=== PATIENT | male | born 1995 | race Caucasian/White ===

== ENCOUNTER 2016-08-13 11:30 | Emergency (ER) | payer SELFPAY ==
[2016-08-13] MEDS ORDERED: HYDROcodone/Acetaminophen 5/325 mg Tablet ONE (11:48)
--- NOTE | 2016-08-13 12:11 | PICIS ---
[facility] EMERGENCY RECORD TRIAGE (TueAug 13, 2016 11:37 LGIB) TRIAGE NOTES: since this morning. (TueAug 13, 2016 11:37 LGIB) PATIENT: NAME: Kristian Sauceda, AGE: 21, GENDER: male, : Tue1995, TIME OF GREET: TueAug 13, 2016 11:31, PREFERRED LANGUAGE: Mongolian, ETHNICITY: Not or , ECODE BILLING MAP: [facility], SSN: [id number], Zip Code: [address], KG WEIGHT: 81.65, , , PERSON ID: [id number], PAYMENT: [employer] Self Pay, PCP: none. (TueAug 13, 2016 11:37 LGIB) PHONE: . (11:52) COMPLAINT: right ear pain. (TueAug 13, 2016 11:37 LGIB) ADMISSION: URGENCY: 5 Fast Track, ADMISSION SOURCE: Home, TRANSPORT: CAR, BED: TRIAGE. (TueAug 13, 2016 11:37 LGIB) SIRS SCORING: Heart Rate 55-109 (0), Temp range 96.8-101.1 (0), respiratory rate 12-24 (0), Mental Status altered: no (0). (11:54 LGIB) PROVIDERS: TRIAGE NURSE: Kaitlin Montgomery RN. (TueAug 13, 2016 11:37 LGIB) VITAL SIGNS: BP 140/88, Pulse 66, Resp 18, (Non-Labored), Temp 98.1, (Oral), O2 Sat 98, on Room Air, Time 08/13/2016 11:36. (11:36 LGIB) PREVIOUS VISIT ALLERGIES: Penicillins, scorpion. (TueAug 13, 2016 11:37 LGIB) Penicillins, scorpion. (11:39 LGIB) KNOWN ALLERGIES Penicillins: - swelling CURRENT MEDICATIONS (11:37 LGIB) None VITAL SIGNS (11:36 LGIB) VITAL SIGNS: BP: 140/88, Pulse: 66, Resp: 18 (Non-Labored), Temp: 98.1 (Oral), O2 sat: 98 on Room Air, Time: 08/13/2016 11:36. NURSING ASSESSMENT: EAR (11:42 LGIB) CONSTITUTIONAL: Complex assessment performed, Patient arrives ambulatory, Gait steady, History obtained from patient, Patient appears, uncomfortable, Patient cooperative, Patient alert, Oriented to person, place and time, Skin warm, Skin dry, Skin normal in color, Mucous membranes pink, Mucous membranes moist, Patient is well-groomed, Patient complains of right ear pain. PAIN: aching pain, to the right ear, Onset of pain 08/13/2016 AM, on a scale 0-10 patient rates pain as 6. EAR: no drainage from ears. SAFETY: Side rails up, Cart/Stretcher in lowest position, Family at bedside, Call light within reach, Hospital ID band on. &a-1R&a+25V*p+0X*[id number]*c202B*c15G*c2P*p-0X&a-25V&a+1R Name: Kristian Sauecda : 1995 M21 MedRec: [id number] AcctNum: [id number] Prepared: TueAug 16, 2016 09:34 by Interface Page 1 of 5 pMD [facility] EMERGENCY RECORD NURSING PROCEDURE: DISCHARGE NOTE (11:54 SDIS) DISCHARGE: Patient discharged to home, ambulating without assistance, friend driving, accompanied by friend, Summary of Care printed/ provided, Transition record given to patient, Discharge instructions given to patient, Simple or moderate discharge teaching performed, Prescriptions given and instructions on side effects given, Above person(s) verbalized understanding of discharge instructions and follow-up care, Patient instructed not to drive home, Patient treated and evaluated by physician, Notes: PT INSTRUCTED NOT TO DRIVE ON PAIN MEDICATIONS. PT VERBALIZES UNDERSTANDING. BELONGINGS: Belongings and valuables with patient at time of discharge include:, Belongings remain with patient, Valuables remain with patient. MEDICATION ADMINISTRATION SUMMARY Drug Name: HYDROcodone-acetaminophen, Dose Ordered: 5/325 mg, Route: Oral, Status: Given, Time: 11:51 08/13/2016, Detailed record available in Medication Service section. MEDICATION SERVICE (11:51 [facility]) HYDROcodone-acetaminophen: Order: HYDROcodone-acetaminophen (hydrocodone bitartrate/acetaminophen) - Dose: 5/325 mg : Oral Schedule: Now Ordered by: Vini Jacob DO Entered by: Vini Jacob DO TueAug 13, 2016 11:47 , Acknowledged by: Kaitlin Montgomery RN TueAug 13, 2016 11:47 Documented as given by: Kaitlin Montgomery RN TueAug 13, 2016 11:51 Patient, Medication, Dose, Route and Time verified prior to administration. Site: Medication administered P.O., Correct patient, time, route, dose and medication confirmed prior to administration, Patient advised of actions and side-effects prior to administration, Allergies confirmed and medications reviewed prior to administration, Patient in position of comfort, Side rails up, Cart in lowest position, Family at bedside. HPI EAR PAIN (TueAug 16, 2016 09:17 MBRI) CHIEF COMPLAINT: Patient presents for evaluation of pain, to the right ear. HISTORIAN: History provided by patient, History provided by patient's family. LOCATION: Symptoms are localized, most severe in the right ear. QUALITY: Pain is dull in nature, described as aching, described as throbbing. SEVERITY: Maximum severity of symptoms moderate, Currently symptoms are moderate. TIME COURSE: Gradual onset of symptoms, 1, days priror to arrival. ASSOCIATED WITH: No associated symptoms, No &a-1R&a+25V*p+0X*d9651I*c202B*c15G*c2P*p-0X&a-25V&a+1R Name: Kristian Sauceda : 1995 M21 MedRec: [id number] AcctNum: [id number] Prepared: TueAug 16, 2016 09:34 by Interface Page 2 of 5 pMD [facility] EMERGENCY RECORD associated dizziness, No associated drainage, No associated fever, No associated foreign body, No associated headache, No associated nausea, No associated sore throat, No associated trauma, No associated upper respiratory infection. EXACERBATED BY: Patient's condition exacerbated by nothing, Patient's condition relieved by pt used a Q-tip this am thinking that would help the pain but afterward he noted a small amt of blood from the ear. RELIEVED BY: Patient's condition relieved by nothing. ROS (TueAug 16, 2016 09:18 MBRI) CONSTITUTIONAL: Negative constitutional review of systems. EYES: Negative eye review of systems. ENT: Historian denies hearing changes, reports otalgia, denies otorrhea, denies rhinorrhea, denies sinus pain, denies sore throat, denies snoring, denies stridor, denies tinnitus, denies voice changes. CARDIOVASCULAR: Negative cardiovascular review of systems. RESPIRATORY: Negative respiratory review of systems, Historian denies cough. GI: Negative gastrointestinal review of systems, Historian denies nausea, denies vomiting. SKIN: Negative skin review of systems, Historian denies cellulitis, denies induration, denies rash, denies skin lesions. NEUROLOGIC: Negative neurologic review of systems, Historian denies dizziness, denies focal weakness, denies gait changes, denies headache, denies vertigo. PAST MEDICAL HISTORY (11:39 LGIB) MEDICAL HISTORY: Past medical history includes pulmonary disease, asthma. verified 08/13/16. MALE SURGICAL HISTORY: bilateral feet verified 08/13/16. PSYCHIATRIC HISTORY: No previous psychiatric history. verified 08/13/16. SOCIAL HISTORY: Patient denies drug use, Patient currently uses tobacco, Patient smokes cigarettes, Patient smokes 1/2 packs per day, Patient drinks socially. PHYSICAL EXAM (TueAug 16, 2016 09:19 MBRI) CONSTITUTIONAL: Vital signs reviewed, Patient afebrile, Pulse normal, Blood pressure normal, Respiratory rate normal, Patient appears non toxic, Patient appears pain free, Patient alert and oriented to person, place and time. HEAD: Head exam included findings of head atraumatic, normocephalic. EYES: Eye exam included findings of eyelids normal to inspection, Pupils equally round and reactive to light, Extraocular muscles intact, Conjunctiva normal. ENT: Ear exam included findings of, left external ear normal, &a-1R&a+25V*p+0X*e6173K*c202B*c15G*c2P*p-0X&a-25V&a+1R Name: Kristian Sauceda : 1995 M21 MedRec: [id number] AcctNum: [id number] Prepared: TueAug 16, 2016 09:34 by Interface Page 3 of 5 pMD [facility] EMERGENCY RECORD right external ear with bloody drainage, tympanic membrane normal on the left, tympanic membrane normal on the right, the ear canal has some slight swelling noted on the inf surface. There is evidence for some soft tissue injury with skin abrasion in this area. No active bleeding noted. This would be consistent with the Qtip he had used earlier in the day. No other issues noted., Nose exam normal, Pharynx exam normal, Uvula exam normal, Mouth exam normal, Teeth with, poor dentition, dental caries, no abscess, Teeth are quite decayed, many to the gum line. No specific ttp of the molars noted. NECK: Neck exam normal, Neck exam included findings of normal range of motion, Trachea midline, no meningeal signs, no cervical adenopathy, no tenderness, no abrasions, no contusions, no ecchymosis. RESPIRATORY CHEST: Respiratory and chest exam normal, Respiratory exam included findings of no respiratory distress, Breath sounds clear. CARDIOVASCULAR: Cardiovascular assessment normal, Cardiovascular exam included findings of heart rate regular rate and rhythm, Heart sounds normal, normal S1, normal S2, no murmurs. NEURO: Trav coma scale 15, Neuro exam findings include patient oriented to person, place and time, Speech normal, Gait normal, Cranial nerves intact, no cerebellar deficits, no nystagmus. SKIN: Skin exam included findings of skin warm, dry, and normal in color, no rash. EVENTS TRANSFER: Triage to Emergency Triage. (TueAug 13, 2016 11:37 LGIB) Emergency Triage to Emergency Room -02. (11:37 LGIB) Removed from Emergency Emergency Room -02. (11:55 SDIS) DOCTOR NOTES (TueAug 16, 2016 09:22 MBRI) TEXT: Rec some abx to cover possible dental source as well as possible soft tissue infection of the ear canal. No abscess noted at this time. Pt is otherwise healthy and without any acute issues. Discussed med plan and Rx and reasons for follow-up and/or return for changes or worsening. He states understanding. PROBLEM LIST No recorded problems DIAGNOSIS (11:51 MBRI) FINAL: PRIMARY: otalgia - possible otitis externa vs dental pain. DISPOSITION PATIENT: Disposition Type: Discharge, Disposition: *Discharge Home, Condition: Good. (11:51 MBRI) &a-1R&a+25V*p+0X*e3587G*c202B*c15G*c2P*p-0X&a-25V&a+1R Name: Kristian Sauceda : 1995 M21 MedRec: [id number] AcctNum: [id number] Prepared: TueAug 16, 2016 09:34 by Interface Page 4 of 5 pMD [facility] EMERGENCY RECORD Patient left the department. (11:55 SDIS) INSTRUCTION (11:49 MBRI) DISCHARGE: DENTAL PAIN, EXTERNAL EAR INFECTION (ADULT). FOLLOWUP: [facility], /[facility], [address] [place] [address], [facility] [address], , Follow up with Primary Care Physician in 7 days. SPECIAL: Please return for any further issues or concerns, we would be happy to see you. We hope you feel better soon. Follow-up with your PCP Return to work in 1 day. PRESCRIPTION acetaminophen-codeine: TABLET : 300 mg-30 mg : ORAL : Quantity: 1 Unit: tab(s) Route: ORAL Schedule: every 4 hours prn Dispense: 20 May substitute. Refills: No Refills . (11:48 MBRI) NOTES: No refills. (11:48 MBRI) Cleocin capsule: CAPSULE (HARD, SOFT, ETC.) : 150 mg : ORAL : Quantity: 2 Unit: tab(s) Route: ORAL Schedule: 3 times a day Dispense: 42 Unit: tab(s) May substitute. Refills: No Refills . (11:48 MBRI) NOTES: ^s=No refills No refills. (11:48 MBRI) Motrin: TABLET : 800 mg : ORAL : Quantity: 1 Unit: tab(s) Route: ORAL Schedule: every 8 hours PRN Dispense: 30 May substitute. Refills: No Refills . (11:48 MBRI) NOTES: ^s=^s=No refills No refills No refills. (11:48 MBRI) Cortisporin otic: SUSPENSION, DROPS(FINAL DOSAGE FORM)(ML) : : OTIC : Quantity: 3 Unit: Drps Route: OTIC Schedule: 3 times a day Dispense: 1 May substitute. Refills: No Refills . (11:50 MBRI) NOTES: No refills. (11:50 MBRI) IMAGING (11:55 SDIS) *DISCHARGE INSTRUCTIONS RECEIPT: Image captured from scanner. *SUPPLY CHARGE SHEET: Image captured from scanner. ADMIN (TueAug 16, 2016 09:25 MBRI) DIGITAL SIGNATURE: DO Jacob Matthew. Abdul: LGIB=KATALINA Montgomery, Kaitlin MBRI=DO Jacob Matthew SDIS=KATALINA Henry, Rena &a-1R&a+25V*p+0X*q1460Q*c202B*c15G*c2P*p-0X&a-25V&a+1R Name: SaucedaKristian : 1995 M21 MedRec: [id number] AcctNum: [id number] Prepared: TueAug 16, 2016 09:34 by Interface Page 5 of 5 pMD [facility] MEDICATION RECONCILIATION You were seen in the Emergency Department on: TueAug 13, 2016 KNOWN ALLERGIES Penicillins: - swelling MEDICATIONS GIVEN WHILE IN THE EMERGENCY DEPARTMENT HYDROcodone-acetaminophen (hydrocodone bitartrate/acetaminophen) - Dose: 5/325 milligram(s) : Oral HOME MEDICATIONS None Notes from the emergency department Reviewed with patient PRESCRIPTIONS (4) Printed (4) acetaminophen-codeine : TABLET : 300 mg-30 mg : ORAL Quantity: 1, Unit: tab(s), Route: ORAL, Schedule: every 4 hours prn, Dispense: 20 Cleocin capsule : CAPSULE (HARD, SOFT, ETC.) : 150 mg : ORAL Quantity: 2, Unit: tab(s), Route: ORAL, Schedule: 3 times a day, Dispense: 42 Unit: tab(s) Motrin : TABLET : 800 mg : ORAL Quantity: 1, Unit: tab(s), Route: ORAL, Schedule: every 8 hours PRN, Dispense: 30 &a-1R&a+25V*p+0X*e2000L*c202B*c15G*c2P*p-0X&a-25V&a+1R Name: Sohail Kristian J : 1995 M21 MedRec: [id number] AcctNum: [id number] Prepared: TueAug 16, 2016 09:34 by Interface pMD MTDD
== END 2016-08-13 11:54 | disposition home or self-care (01) ==
LOC: BURERS 11:30
DX: H92.01 Otalgia, right ear (principal); J45.909 Unspecified asthma, uncomplicated; F17.210 Nicotine dependence, cigarettes, uncomplicated

== ENCOUNTER 2019-01-31 20:01 | Emergency (ER) | payer SELFPAY ==
[2019-01-31 20:25] LABS: #Basophils 0.1 thou/uL (0.0-0.2); #Eosinphils 0.1 thou/uL (0.0-0.7); #Lymphocytes 3.2 thou/uL (1.20-3.40); #Monocytes 0.4 thou/uL (0.11-0.59); #Neutrophils 4.8 thou/uL (1.40-6.50); %Eosinophils 1.7 % (0.0-10.0); %Lymphocytes 37.1 % (21.0-51.0); %Monocytes 4.6 % (0.0-10.0); %Neutrophils 55.6 % (42.0-75.0); Hemoglobin 12.9 g/dL (14.0-18.0); Mean Corpuscular HGB CONC 32.6 g/dL (32.0-36.0); Mean Corpuscular Hemoglobin 30.1 pg (27.0-31.0); Mean Corpuscular Volume 92.1 fL (78.0-98.0); Mean Platelet Volume 5.3 fL (7.4-10.4); Platelet Count 371 thou/uL (130-400); RBC Distribution Width 10.9 % (11.5-14.5); Red Blood Cell (RBC) Count 4.29 mill/uL (4.70-6.10); White Blood Cell (WBC) Count 8.5 thou/uL (4.8-10.8)
[2019-01-31] MEDS ORDERED: Aspirin Chewable 81 MG TAB ONE ×2 (20:33)
[2019-01-31 20:40] LABS: ALT (SGPT) 14 U/L (8-55); AST (SGOT) 16 U/L (5-34); Albumin 4.7 g/dL (3.5-5.0); Alkaline Phosphatase 76 U/L (40-150); Anion Gap 15 mmol/L (10-20); BUN (Urea Nitrogen) 11 mg/dL (8.9-20.6); Bilirubin, Total 0.5 mg/dL (0.2-1.2); Calc. Creatinine Clearance 0 mL/min (70-130); Calcium 9.7 mg/dL (7.8-10.44); Carbon Dioxide 24 mmol/L (22-29); Chloride 106 mmol/L (98-107); Estimated GFR-MDRD 78; Globulin 2.8 g/dL (2.4-3.5); Glucose 99 mg/dL (70-105); Potassium 3.7 mmol/L (3.5-5.1); Protein, Total 7.5 g/dL (6.0-8.3); Sodium 141 mmol/L (136-145)
[2019-01-31 20:45] LABS: Amphetamine Detected (NotDetected); Barbiturates Screen Not Detected (NotDetected); Benzodiazepine Screen Not Detected (NotDetected); Cocaine Metabolite Screen Not Detected (NotDetected); Medtox Control Line Valid? VALID (VALID); Methadone Not Detected (NotDetected); Methamphetamine Detected (NotDetected); Opiate Screen Not Detected (NotDetected); Oxycodone Screen Not Detected (NotDetected); Phencyclidine (PCP) Not Detected (NotDetected); THC/Cannabinoid Screen Not Detected (NotDetected); Tricyclic Screen Not Detected (NotDetected)
--- NOTE | 2019-02-01 09:25 | RAD ---
PORTABLE CHEST: Date: 01/31/19 An AP portable film at 2014 hours shows normal sized heart and clear lungs. No infiltrate or effusion seen. There is no congestion or edema. Mediastinum appears normal. IMPRESSION: No acute thoracic findings. POS: HOME
== END 2019-01-31 21:30 | disposition left against medical advice (07) ==
LOC: BURERS 20:01
DX: R07.9 Chest pain, unspecified (principal); F15.10 Other stimulant abuse, uncomplicated; J45.909 Unspecified asthma, uncomplicated; F17.210 Nicotine dependence, cigarettes, uncomplicated
CPT/HCPCS: 71045; 80053; 80306; 84484; 85025; 93005; 94760

== ENCOUNTER 2019-12-15 19:51 | Emergency (ER) | payer SELFPAY ==
[2019-12-15 20:32] LABS: Bilirubin Negative (Negative); Blood, Urine Negative (Negative); Clarity Clear (Clear); Glucose, Urine (Dipstick) Negative (Negative); Leukocyte Negative (Negative); Nitrite Negative (Negative); Protein, Urine (Dipstick) Negative (Neg-Trace); Urobilinogen 0.2 mg/dL (Less than 2)
[2019-12-15] MEDS ORDERED: Pantoprazole 40 MG VIAL ONE (20:34)
[2019-12-15] MEDS ORDERED: Aspirin Chewable 81 MG TAB ONE (20:34)
[2019-12-15] MEDS ORDERED: Lidocaine Viscous Sol 2% 15 ml UD Cup ONE (20:34)
[2019-12-15 20:40] LABS: Amphetamine Detected (NotDetected); Barbiturates Screen Not Detected (NotDetected); Benzodiazepine Screen Not Detected (NotDetected); Cocaine Metabolite Screen Not Detected (NotDetected); Medtox Control Line Valid? VALID (VALID); Methadone Not Detected (NotDetected); Methamphetamine Detected (NotDetected); Opiate Screen Not Detected (NotDetected); Oxycodone Screen Not Detected (NotDetected); Phencyclidine (PCP) Not Detected (NotDetected); THC/Cannabinoid Screen Detected (NotDetected); Tricyclic Screen Not Detected (NotDetected)
[2019-12-15] MEDS ORDERED: Milk Of Magnesia 30 ML UDCUP ONE (20:40)
--- NOTE | 2019-12-15 20:43 | RAD ---
SINGLE VIEW OF THE CHEST: 12/15/19 COMPARISON: 01/31/19 HISTORY: Chest pain. FINDINGS: Single view of the chest shows a normal sized cardiomediastinal silhouette. There is no evidence of c onsolidation, mass, or pleural effusion. The bones are unremarkable. IMPRESSION: No evidence of acute cardiopulmonary disease. POS: [facility]
[2019-12-15 20:45] LABS: #Basophils 0.1 thou/uL (0.0-0.2); #Eosinphils 0.3 thou/uL (0.0-0.7); #Lymphocytes 3.4 thou/uL (1.20-3.40); #Monocytes 0.7 thou/uL (0.11-0.59); #Neutrophils 5.6 thou/uL (1.40-6.50); %Basophils 0.9 % (0.0-1.0); %Eosinophils 2.7 % (0.0-10.0); %Lymphocytes 33.6 % (21.0-51.0); %Monocytes 6.5 % (0.0-10.0); %Neutrophils 56.2 % (42.0-75.0); Hemoglobin 12.5 g/dL (14.0-18.0); Mean Corpuscular HGB CONC 31.1 g/dL (32.0-36.0); Mean Corpuscular Hemoglobin 30.2 pg (27.0-31.0); Mean Corpuscular Volume 96.9 fL (78.0-98.0); Mean Platelet Volume 5.4 fL (7.4-10.4); Platelet Count 363 thou/uL (130-400); RBC Distribution Width 11.9 % (11.5-14.5); Red Blood Cell (RBC) Count 4.13 mill/uL (4.70-6.10)
[2019-12-15] MEDS ORDERED: Ibuprofen 800 MG TAB ONE (20:46)
[2019-12-15 21:02] LABS: ALT (SGPT) 63 U/L (8-55); AST (SGOT) 28 U/L (5-34); Albumin 4.2 g/dL (3.5-5.0); Alkaline Phosphatase 71 U/L (40-110); Anion Gap 13 mmol/L (10-20); BUN (Urea Nitrogen) 10 mg/dL (8.9-20.6); Bilirubin, Total Less than 0.2 mg/dL (0.2-1.2); Calc. Creatinine Clearance 0 mL/min (70-130); Calcium 8.9 mg/dL (7.8-10.44); Carbon Dioxide 28 mmol/L (22-29); Chloride 105 mmol/L (98-107); Estimated GFR-MDRD Greater than 90; Globulin 2.6 g/dL (2.4-3.5); Glucose 89 mg/dL (70-105); Potassium 4.3 mmol/L (3.5-5.1); Protein, Total 6.8 g/dL (6.0-8.3); Sodium 142 mmol/L (136-145)
== END 2019-12-15 21:02 | disposition left against medical advice (07) ==
LOC: BURERS 19:51
DX: R07.2 Precordial pain (principal); J45.909 Unspecified asthma, uncomplicated; F17.210 Nicotine dependence, cigarettes, uncomplicated
CPT/HCPCS: 71045; 80053; 80306; 81003; 84484; 85025; 93005; 94760; 96374; C9113

== ENCOUNTER 2021-02-01 11:23 | Emergency (ER) | payer OTHER, SELFPAY ==
[2021-02-01] MEDS ORDERED: Ondansetron ODT 4 MG TAB ONE (11:40)
== END 2021-02-01 11:45 | disposition home or self-care (01) ==
LOC: BURERS 11:23
DX: T23.102A Burn of first degree of left hand, unspecified site, initial encounter (principal); T23.222A Burn of second degree of single left finger (nail) except thumb, initial encounter; T59.811A Toxic effect of smoke, accidental (unintentional), initial encounter; J45.909 Unspecified asthma, uncomplicated; F17.210 Nicotine dependence, cigarettes, uncomplicated; X01.0XXA Exposure to flames in uncontrolled fire, not in building or structure, initial encounter
CPT/HCPCS: 99283; Q0162